=== PATIENT | female | born 1965 | race Caucasian/White ===

== ENCOUNTER → 2019-04-16 15:44 | Outpatient (CLI) | payer BC, SELFPAY ==
[2019-04-16 15:08] VITALS: BMI 21.7
[2019-04-16 17:41] LABS: Free T3 3.2 pg/mL (2.18-3.98)
[2019-04-19 15:51] LABS: Thyroid Peroxidase AB 368 IU/mL (0-34)
== END ==
PROVIDERS: PCP Internal Medicine; Referring Provider Internal Medicine Endocrinology, Diabetes & Metabolism; Visit Provider Internal Medicine Endocrinology, Diabetes & Metabolism
DX: E05.90 Thyrotoxicosis, unspecified without thyrotoxic crisis or storm (principal)
CPT/HCPCS: 36415; 84445; 84481; 86376

== ENCOUNTER → 2020-12-11 08:31 | Outpatient (CLI) | payer BC, SELFPAY ==
--- NOTE | 2020-12-11 08:35 | EKG12_ITS ---
Test Reason : PRE OP Blood Pressure : / mmHG Vent. Rate : 076 BPM Atrial Rate : 076 BPM P-R Int : 180 ms QRS Dur : 078 ms QT Int : 378 ms P-R-T Axes : 085 066 067 degrees QTc Int : 425 ms Normal sinus rhythm Normal ECG No previous ECGs available Confirmed by ELIAN WOOD, JOSELYN ([id number]), editor newspaper LUCIANO JOY ([id number]) on 12/11/2020 10:51:23 AM Referred By: Jackelyn Dawson Confirmed By:JOSELYN PLUMMER MD
== END ==
PROVIDERS: PCP Internal Medicine; Referring Provider Physician Assistant Surgical; Visit Provider Physician Assistant Surgical
DX: Z01.812 Encounter for preprocedural laboratory examination (principal); Z01.810 Encounter for preprocedural cardiovascular examination
CPT/HCPCS: 93005

== ENCOUNTER 2021-01-12 11:52 | Outpatient (RCR) | payer BC, SELFPAY ==
--- NOTE | 2021-02-18 15:06 | HP.OTEVAL ---
Patient's Visit Information TALIA EVERETT is a 55 year old F, referred to Occupational Therapy by Dr. Marquis Miller MD, with a diagnosis of left thumb OA cmc. Date of Evaluation: 01/12/21 Occupational Therapist: Marcie Jackson, SHRUTHIR/Jenni, CHT - Subjective this 55 year old female was seen for OT eval with dx of left CMC OA. Pt states she had sx on 12/12/20 left CMC arthroplasty. pt 4 weeks 3 days s/p and in need of custom orthosis to provide support and protection while joint is healing and stabilizing. pt states she is right handed. 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 - Pain left hand 4 Pain Intensity Range: 4 - ROM Wrist: right 65/55 right 60/30 CMC: right 10 left MP: right 65 left 20 IP: right 65 left 30 Opposition: right 10 left 6 - Strength Director Mba: right 50# left NT Lateral Pinch: right 2# left NT Tripod Pinch: right 4# left NT - Quick DASH-Disab of Arm,Shoulder& Hand Quick DASH Score: 67.5000 - Goals Goal:100% adherence to protocol: Yes Comment: cmc arthroplasty Goal:Daily scar massage when approriate: Yes Goal:ROM equal to unaffected hand: Yes Goal:Director Mba/Pinch strength at least 75% of unaffected hand: Yes Goal:No pain with affected hand use: Yes Goal:Full use of affected hand in daily activities including: Yes - Rehabilitation General Assessment: pt is s/p 4 weeks from a left cmc arthroplasty. pt is limited with use of left hand with ADLs and IADLs and demo need for skilled OT services 1-2x week for 6 weeks to assist pt in return to her PLOD. Today therapist ramon. custom palm based thumb spica and ed. pt on skin care and precautions. Therapist ed pt on short arch wrist AROM and light opposition and supported CMC MP and IP flex. pt demo understanding and agree to POC. Rehabilitation Potential: Good - Anticipated Interventions A/AAROM/PROM, Strengthening, Scar Care, Modalities, Orthoses, Joint Protection/Energy Conservation, Ergonomic Education, Fine Motor Coord/Simon, Education re Diagnosis, Home Program - Visit Plan Frequency: 1-2x /Week Duration: 6 Months TEXT: Thank you for the opportunity to evaluate your patient. For Medicare and Medicare HMO plans, please review the plan of care and approve it. It will need to be FAXED BACK to us at [phone] for Medicare purposes. Please let me know if there are questions or concerns regarding this plan of care. Physician Signature: Date:
--- NOTE | 2021-02-18 15:08 | HP.OT.NRP ---
TALIA EVERETT was seen in my office for initial evaluation on 01/12/21. The following Plan of Care was established for this patient: pt was seen for initial OT eval only- she no showed 4 visits and canceled 1. pt has been d/c from OT at this time due to non attendance. Initial Frequency: 1-2x /Week Initial Duration: 6 Months Anticipated Interventions: A/AAROM/PROM, Strengthening, Scar Care, Modalities, Orthoses, Joint Protection/Energy Conservation, Ergonomic Education, Fine Motor Coord/Simon, Education re Diagnosis, Home Program This patient was last seen in our office . Pertinent comments regarding their Occupational therapy will appear below: At this point I will be discontinuing this patient from occupational therapy. I would be happy to see this patient again in the future if found appropriate by the physician. Thank you! Marcie Jackson, OTR/L, CHT
== END 2021-01-12 19:00 | disposition home or self-care (01) ==
LOC: OT 11:52
PROVIDERS: PCP Internal Medicine; Referring Provider Specialist; Visit Provider Specialist
DX: M18.12 Unilateral primary osteoarthritis of first carpometacarpal joint, left hand (principal)
CPT/HCPCS: 97166; 97760